=== PATIENT | female | born 1990 | race Caucasian/White ===

== ENCOUNTER 2016-12-06 00:56 | Emergency (ER) | payer SELFPAY ==
[~2016-12-06] VITALS: Ht 170.2 cm; Wt 147.4 kg
[2016-12-06 00:58] VITALS: BP 151/95; PULSE 103; RESP 17; TEMP 97.3; O2SAT 96
--- NOTE | 2016-12-06 00:58 | NUR ---
Patient triaged and placed in waiting room. VSS and patient appears in no acute distress at this time. Accompanied by self, awaiting available bed, and MD notified of need for MSE.
--- NOTE | 2016-12-06 01:26 | NUR ---
Patient not in the waiting room, restroom, or ER hallways. ER MD & charge aware.
--- NOTE | 2016-12-06 01:35 | NUR ---
Patient not in waiting room, hallways or restoom.
--- NOTE | 2016-12-06 01:43 | NUR ---
Nathen alejandra in [facility] - 12/06/16 at 0310 by RUBÉN Patient RUBI
== END 2016-12-06 01:43 | disposition left against medical advice (07) ==
LOC: SED 00:56
DX: R00.2 Palpitations (principal); Z88.0 Allergy status to penicillin; Z53.21 Procedure and treatment not carried out due to patient leaving prior to being seen by health care provider
CPT/HCPCS: 99281